=== PATIENT | female | born 1965 | race Asian ===

== ENCOUNTER 2018-05-11 11:00 | Outpatient (CLI) | payer MEDICARE ==
--- NOTE | 2018-05-11 12:55 | ULT ---
RIGHT UPPER QUADRANT ULTRASOUND: HISTORY: Elevated LFTs. FINDINGS: There is increased echogenicity in the liver parenchyma indicative of fatty liver. Multiple shadowin g mobile gallstones are seen in the distended gallbladder which measures 10 cm. No gallbladder wall thickening or pericholecystic fluid is seen. The pancreas is not visualized due to overlying bowel g as. The common duct measures 5 mm in diameter. The right kidney is normal. No free fluid is seen i n the Morison's pouch. IMPRESSION: 1. Fatty liver. 2. Cholelithiasis. POS: PRISCILLA
== END 2018-05-11 11:01 | disposition home or self-care (01) ==
LOC: SCSULT 11:00
PROVIDERS: ATTEND Family Medicine
DX: R79.89 Other specified abnormal findings of blood chemistry (principal); K80.20 Calculus of gallbladder without cholecystitis without obstruction; K76.0 Fatty (change of) liver, not elsewhere classified
CPT/HCPCS: 76705

== ENCOUNTER 2019-08-20 14:56 | Outpatient (CLI) | payer MEDICARE ==
--- NOTE | 2019-08-20 15:29 | RAD ---
EXAM: Chest 2 views: HISTORY: Shortness of breath and chest pain COMPARISON: 12/08/2017 FINDINGS: There is a normal-sized cardiomediastinal silhouette. Diffuse stable increased interstitial markings are present. There is no evidence of consolidation, mass, or pleural effusion. The bones are unremarkable. IMPRESSION: Chronic interstitial lung disease.
--- NOTE | 2019-08-20 15:34 | RAD ---
EXAM: Left rib series HISTORY: Rib pain COMPARISON: None FINDINGS: Multiple views of the left ribs shows no evidence of displaced rib fracture. No underlying pleural th ickening or pneumothorax are seen. IMPRESSION: 1. No evidence of displaced rib fracture.
--- NOTE | 2019-08-20 15:35 | RAD ---
EXAM: 3 views of the thoracic spine HISTORY: Thoracic spine pain COMPARISON: None FINDINGS: 3 views of the thoracic spine shows normal height and alignment of the vertebral bodies and intervertebral discs without fracture or subluxation. There is minimal scoliotic curvature of the spine. No significant degenerative changes are seen. IMPRESSION: No significant thoracic spine abnormality.
== END 2019-08-20 14:57 | disposition home or self-care (01) ==
LOC: SCSRAD 14:56
PROVIDERS: ATTEND Family Medicine
DX: J47.9 Bronchiectasis, uncomplicated (principal); M54.6 Pain in thoracic spine; R07.89 Other chest pain; J84.9 Interstitial pulmonary disease, unspecified
CPT/HCPCS: 71046; 72072

== ENCOUNTER 2023-02-13 11:08 | Outpatient (CLI) | payer OTHER | END 2023-02-13 11:09 | disposition home or self-care (01) | LOC: SCSRAD 11:08 | PROVIDERS: ATTEND Nurse Practitioner Family | DX: R06.02 Shortness of breath (principal); J98.4 Other disorders of lung | CPT/HCPCS: 71046 ==